=== PATIENT | female | born 1960 | race Caucasian/White ===

== ENCOUNTER 2016-06-30 14:31 | Inpatient (IN) | payer OTHER ==
[~2016-06-30] VITALS: Ht 167.6 cm; Wt 77.0 kg
[~2016-06-30 14:31] MED LIST: APAP/HYDROCODON1 T13 PO; BENAZEPRIL HYDR20 M1 PO; BG MC; FERG PO; GLU5 PO; HUMULIN R100 U/1 M1 SC; LAC PO; MAC100 PO; METFORMIN HCL1000 MG; METFORMIN HCL1000 MG PO; PAROXETINE20 M1 PO; PHARMASSURE VI500 MG PO
[2016-06-30] MEDS ORDERED: LISINOPRIL40 MG PO (15:05)
[2016-06-30 15:20] LABS: BASOPHIL % 0.3 % (0-2)
[2016-06-30 15:24] LABS: RED CELL DISTRIBUTION WIDTH 15.1 % (11.5-14.5)
[2016-06-30 15:30] LABS: PLATELET COUNT 555 x10^3mcL (130-400)
[2016-06-30 15:38] LABS: ALBUMIN 3.4 g/dL (3.4-5.0); BILIRUBIN TOTAL 0.4 mg/dL (0.20-1.00); CALCIUM 9.6 mg/dL (8.5-10.1); CARBON DIOXIDE 21.9 mmol/L (21-32); MAGNESIUM 3.4 mg/dL (1.8-2.4)
[2016-06-30 15:39] LABS: TOTAL PROTEIN, SERUM 8.3 g/dL (6.4-8.2)
[2016-06-30 15:42] LABS: CREATININE SERUM 14.2 mg/dL (0.6-1.0); POTASSIUM SERUM 6.2 mmol/L (3.5-5.1)
[2016-06-30 17:21] LABS: FREE T4 1.25 ng/dL (0.76-1.46); FREE THYROXINE INDEX 2.3 ug/dL (1.4-4.5); T4(THYROXINE) 6.9 ug/dL (4.7-13.3)
[2016-06-30 17:22] LABS: T3 TOTAL 0.7 ng/mL
[2016-06-30 17:39] VITALS: BP 169/90
[2016-06-30 20:10] LABS: CALCIUM 9.1 mg/dL (8.5-10.1)
[2016-06-30 20:14] LABS: POTASSIUM SERUM 6.3 mmol/L (3.5-5.1)
[2016-06-30 20:15] LABS: CREATININE SERUM 14.3 mg/dL (0.6-1.0)
[2016-06-30 21:01] VITALS: BP 177/92
[2016-06-30 21:17] VITALS: BP 169/90
[2016-06-30 22:44] VITALS: BP 154/78
[2016-07-01] VITALS (8 sets, daily range): BP systolic 143–166; BP diastolic 71–96
[2016-07-01 00:27] LABS: CALCIUM 9.5 mg/dL (8.5-10.1); CARBON DIOXIDE 19.6 mmol/L (21-32)
[2016-07-01 00:30] LABS: POTASSIUM SERUM 5.7 mmol/L (3.5-5.1)
[2016-07-01 00:31] LABS: CREATININE SERUM 13.1 mg/dL (0.6-1.0)
[2016-07-01 06:32] LABS: BASOPHIL % 0.3 % (0-2)
[2016-07-01 06:57] LABS: CARBON DIOXIDE 22.4 mmol/L (21-32); PHOSPHOROUS 6.8 mg/dL (2.5-4.9)
[2016-07-01 06:59] LABS: POTASSIUM SERUM 5.6 mmol/L (3.5-5.1)
[2016-07-01 07:00] LABS: CREATININE SERUM 13.8 mg/dL (0.6-1.0)
[2016-07-01 07:44] LABS: PLATELET COUNT 499 x10^3mcL (130-400)
[2016-07-01 09:52] LABS: microscopic required? YES; urine erythrocyte 2+ (NEGATIVE)
[2016-07-01 10:04] LABS: CREATININE UR 32.6 mg/dL
[2016-07-01 10:15] LABS: rbc morphology (normal/abnorm) ABNORMAL (NORMAL)
[2016-07-01 10:29] LABS: AMPHETAMINE QUAL UR NONE DETECTED (NEG <=1000)
[2016-07-01 16:43] LABS: CALCIUM 8.8 mg/dL (8.5-10.1); CARBON DIOXIDE 26.2 mmol/L (21-32)
[2016-07-01 16:45] LABS: POTASSIUM SERUM 5.6 mmol/L (3.5-5.1)
[2016-07-01 16:46] LABS: CREATININE SERUM 13.1 mg/dL (0.6-1.0)
[2016-07-02 01:28] LABS: BASOPHIL % 2.2 % (0-2); PLATELET COUNT 411 x10^3mcL (130-400); RED CELL DISTRIBUTION WIDTH 15.4 % (11.5-14.5)
[2016-07-02 05:55] VITALS: BP 111/69
[2016-07-02 06:50] LABS: BASOPHIL % 0.2 % (0-2); PLATELET COUNT 394 x10^3mcL (130-400)
[2016-07-02 07:06] LABS: CALCIUM 8.4 mg/dL (8.5-10.1); CARBON DIOXIDE 27.2 mmol/L (21-32); MAGNESIUM 2.9 mg/dL (1.8-2.4); PHOSPHOROUS 8.5 mg/dL (2.5-4.9); POTASSIUM SERUM 5.1 mmol/L (3.5-5.1); RED CELL DISTRIBUTION WIDTH 16.6 % (11.5-14.5)
[2016-07-02 07:57] LABS: CREATININE SERUM 12.7 mg/dL (0.6-1.0)
[2016-07-02 10:00] VITALS: BP 166/92
[2016-07-02 18:19] VITALS: BP 136/75
[2016-07-02 20:40] VITALS: BP 134/71
[2016-07-03 06:10] VITALS: BP 136/72
[2016-07-03 06:26] LABS: BASOPHIL % 0.5 % (0-2); PLATELET COUNT 376 x10^3mcL (130-400)
[2016-07-03 06:28] LABS: CALCIUM 8.7 mg/dL (8.5-10.1); CARBON DIOXIDE 29.8 mmol/L (21-32); MAGNESIUM 2.5 mg/dL (1.8-2.4); POTASSIUM SERUM 4.5 mmol/L (3.5-5.1); RED CELL DISTRIBUTION WIDTH 16.6 % (11.5-14.5)
[2016-07-03 07:03] LABS: CREATININE SERUM 12.7 mg/dL (0.6-1.0)
[2016-07-03 08:42] VITALS: Ht 167.6 cm; Wt 77.0 kg
[2016-07-03 09:56] VITALS: BP 161/78
[2016-07-03 17:15] LABS: BASOPHIL % 0.7 % (0-2)
[2016-07-03 17:20] LABS: PLATELET COUNT 414 x10^3mcL (130-400); RED CELL DISTRIBUTION WIDTH 16.4 % (11.5-14.5)
[2016-07-03] MEDS ORDERED: NOR10T PO (17:40)
[2016-07-03] MEDS ORDERED: COLACE100 MG PO (17:41)
[2016-07-03] MEDS ORDERED: ZOFRAN ODT8 MG PO (17:43)
[2016-07-03 17:49] VITALS: BP 161/78
[2016-07-03] MEDS ORDERED: TYL500 PO (18:01)
[2016-07-03 18:43] VITALS: BP 143/75
[2016-07-03 20:34] VITALS: BP 151/87
[2016-07-04 05:24] VITALS: BP 130/79
[2016-07-04 05:40] LABS: BASOPHIL % 0.6 % (0-2)
[2016-07-04 05:46] LABS: PLATELET COUNT 409 x10^3mcL (130-400)
[2016-07-04 05:54] LABS: CARBON DIOXIDE 27.1 mmol/L (21-32); MAGNESIUM 2.4 mg/dL (1.8-2.4); PHOSPHOROUS 7.8 mg/dL (2.5-4.9); POTASSIUM SERUM 3.6 mmol/L (3.5-5.1)
[2016-07-04 06:09] LABS: CREATININE SERUM 10.9 mg/dL (0.6-1.0)
[2016-07-04 08:51] VITALS: BP 150/77
[2016-07-04 13:41] VITALS: BP 123/71
[2016-07-04 17:06] VITALS: BP 143/75
[2016-07-04 21:20] VITALS: BP 155/81
[2016-07-05 05:51] VITALS: BP 127/71
[2016-07-05 06:22] LABS: BASOPHIL % 0.3 % (0-2)
[2016-07-05 06:48] LABS: PLATELET COUNT 429 x10^3mcL (130-400); RED CELL DISTRIBUTION WIDTH 16.3 % (11.5-14.5)
[2016-07-05 07:00] LABS: CALCIUM 9.1 mg/dL (8.5-10.1); CARBON DIOXIDE 27.6 mmol/L (21-32); MAGNESIUM 2.2 mg/dL (1.8-2.4); PHOSPHOROUS 6.8 mg/dL (2.5-4.9); POTASSIUM SERUM 3.5 mmol/L (3.5-5.1)
[2016-07-05 07:04] LABS: CREATININE SERUM 8.5 mg/dL (0.6-1.0)
[2016-07-05 09:00] VITALS: BP 150/85
[2016-07-05 09:40] VITALS: BP 140/77
[2016-07-05 15:00] VITALS: BP 127/68
[2016-07-05 15:14] VITALS: BP 127/68
[2016-07-05] MEDS ORDERED: ASPIRIN PO (15:22)
== END 2016-07-05 18:12 | disposition home health service (06) | DRG 951 ==
LOC: ED 14:31 → DU 16:37
PROVIDERS: Emergency Medicine; Family Medicine; Internal Medicine; Urology; ADMIT Family Medicine
PROC: 0TJB8ZZ Inspection of Bladder, Via Natural or Artificial Opening Endoscopic (ICD-10-PCS; principal; 2016-07-01 10:00)
PROC: 0T9030Z Drainage of Right Kidney with Drainage Device, Percutaneous Approach (ICD-10-PCS; 2016-07-03)
PROC: 0T9130Z Drainage of Left Kidney with Drainage Device, Percutaneous Approach (ICD-10-PCS; 2016-07-03)
DX: C53.9 Malignant neoplasm of cervix uteri, unspecified (principal); N17.0 Acute kidney failure with tubular necrosis; K85.90 Acute pancreatitis without necrosis or infection, unspecified; C67.0 Malignant neoplasm of trigone of bladder; E11.51 Type 2 diabetes mellitus with diabetic peripheral angiopathy without gangrene; E11.21 Type 2 diabetes mellitus with diabetic nephropathy; I16.0 Hypertensive urgency; D47.3 Essential (hemorrhagic) thrombocythemia; E86.0 Dehydration; N18.3 Chronic kidney disease, stage 3 (moderate); C54.1 Malignant neoplasm of endometrium; N13.1 Hydronephrosis with ureteral stricture, not elsewhere classified; N82.0 Vesicovaginal fistula; E11.65 Type 2 diabetes mellitus with hyperglycemia; E87.5 Hyperkalemia; E11.22 Type 2 diabetes mellitus with diabetic chronic kidney disease; I12.9 Hypertensive chronic kidney disease with stage 1 through stage 4 chronic kidney disease, or unspecified chronic kidney disease; E78.2 Mixed hyperlipidemia; D64.9 Anemia, unspecified; Z68.27 Body mass index [BMI] 27.0-27.9, adult; Z79.4 Long term (current) use of insulin; Z79.84 Long term (current) use of oral hypoglycemic drugs; Z87.891 Personal history of nicotine dependence
CPT/HCPCS: 80307; 83880; 84439; 97110-GP; 97116-GP; 97530-GP; C1729; C1758; C1769; C1884; C1894; J0360; J0610; J0696; J1815; J2001; J2250; J2704; J3010; J3490; J7030; J7040; J7050; J7620; P9016; Q0092; Q0163; Q9967

== ENCOUNTER 2016-07-27 07:38 | Emergency (ER) | payer OTHER ==
[~2016-07-27] VITALS: Ht 160 cm; Wt 73.6 kg
[~2016-07-27 07:38] MED LIST changes: +ASPIRIN PO; +COLACE100 MG PO; +LISINOPRIL40 MG PO; +NOR10T PO; +TYL500 PO; +ZOFRAN ODT8 MG PO
[2016-07-27 08:38] VITALS: BP 138/88
== END 2016-07-27 08:38 | disposition home or self-care (01) ==
LOC: ED 07:38
DX: T83.89XA Other specified complication of genitourinary prosthetic devices, implants and grafts, initial encounter (principal); C76.0 Malignant neoplasm of head, face and neck; I10 Essential (primary) hypertension; F32.9 Major depressive disorder, single episode, unspecified; E11.9 Type 2 diabetes mellitus without complications; N82.0 Vesicovaginal fistula; Y92.89 Other specified places as the place of occurrence of the external cause
CPT/HCPCS: 50398

== ENCOUNTER 2016-08-16 17:59 | Inpatient (IN) | payer OTHER ==
[~2016-08-16] VITALS: Ht 167.6 cm; Wt 74.8 kg
[2016-08-16 19:37] LABS: microscopic required? YES; urine erythrocyte 1+ (NEGATIVE)
[2016-08-16 19:42] LABS: BASOPHIL % 0.3 % (0-2)
[2016-08-16 19:48] LABS: PLATELET COUNT 570 x10^3mcL (130-400); RED CELL DISTRIBUTION WIDTH 15.9 % (11.5-14.5)
[2016-08-16 20:13] LABS: CALCIUM 9.3 mg/dL (8.5-10.1); CARBON DIOXIDE 26.6 mmol/L (21-32); CREATININE SERUM 2.5 mg/dL (0.6-1.0); POTASSIUM SERUM 4.1 mmol/L (3.5-5.1)
[2016-08-16 20:22] LABS: BILIRUBIN TOTAL 0.2 mg/dL (0.20-1.00); TOTAL PROTEIN, SERUM 7.9 g/dL (6.4-8.2)
[2016-08-16 20:24] LABS: ALBUMIN 2.7 g/dL (3.4-5.0)
[2016-08-16 20:53] LABS: T3 TOTAL 0.68 ng/mL
[2016-08-16 21:54] LABS: MAGNESIUM 1.8 mg/dL (1.8-2.4); PHOSPHOROUS 3.4 mg/dL (2.5-4.9)
[2016-08-16 21:56] LABS: CHOLESTEROL/HDL RATIO 4.2
[2016-08-16 22:01] LABS: FREE T4 1.44 ng/dL (0.76-1.46); FREE THYROXINE INDEX 2.7 ug/dL (1.4-4.5); T4(THYROXINE) 7.4 ug/dL (4.7-13.3)
[2016-08-16 22:39] VITALS: BP 140/72
[2016-08-17 02:47] LABS: AMPHETAMINE QUAL UR NONE DETECTED (NEG <=1000)
[2016-08-17 08:38] LABS: BASOPHIL % 0.4 % (0-2)
[2016-08-17 08:40] LABS: PLATELET COUNT 514 x10^3mcL (130-400)
[2016-08-17 09:10] LABS: CALCIUM 8.5 mg/dL (8.5-10.1); CARBON DIOXIDE 25.4 mmol/L (21-32); MAGNESIUM 1.8 mg/dL (1.8-2.4); PHOSPHOROUS 3.6 mg/dL (2.5-4.9); POTASSIUM SERUM 4.2 mmol/L (3.5-5.1)
[2016-08-17 09:34] VITALS: BP 105/57
[2016-08-17 09:35] VITALS: BP 151/54
[2016-08-17 09:37] VITALS: BP 105/57
[2016-08-17 10:11] LABS: rbc morphology (normal/abnorm) ABNORMAL (NORMAL)
[2016-08-17 13:46] VITALS: BP 106/70
[2016-08-17 15:20] LABS: RED BLOOD CELLS 2.4 M/mm3 (4.10-5.10)
[2016-08-17 16:11] LABS: rbc morphology (normal/abnorm) ABNORMAL (NORMAL)
[2016-08-17 16:36] LABS: IRON 15 ug/dL (50-170); TOTAL IRON BINDING CAPACITY 160 ug/dL (250-450)
[2016-08-17 17:44] VITALS: BP 112/61
[2016-08-17 21:48] VITALS: BP 111/68
[2016-08-18 06:53] VITALS: BP 102/69
[2016-08-18 09:30] VITALS: BP 101/59
[2016-08-18 10:58] LABS: BASOPHIL % 0.6 % (0-2)
[2016-08-18 11:08] LABS: CALCIUM 9.1 mg/dL (8.5-10.1); CREATININE SERUM 1.9 mg/dL (0.6-1.0); MAGNESIUM 1.5 mg/dL (1.8-2.4); PHOSPHOROUS 4.3 mg/dL (2.5-4.9); POTASSIUM SERUM 4.1 mmol/L (3.5-5.1)
[2016-08-18 11:09] LABS: PLATELET COUNT 574 x10^3mcL (130-400); RED CELL DISTRIBUTION WIDTH 16.5 % (11.5-14.5)
[2016-08-18 11:19] LABS: rbc morphology (normal/abnorm) ABNORMAL (NORMAL)
[2016-08-18 12:54] VITALS: BP 105/60
[2016-08-18 16:56] VITALS: BP 129/71
[2016-08-18 21:09] VITALS: BP 128/74
[2016-08-19 05:26] VITALS: BP 102/60
[2016-08-19 07:06] LABS: BASOPHIL % 0.3 % (0-2)
[2016-08-19 07:15] LABS: PLATELET COUNT 651 x10^3mcL (130-400); RED CELL DISTRIBUTION WIDTH 16.4 % (11.5-14.5)
[2016-08-19 07:26] LABS: CALCIUM 8.9 mg/dL (8.5-10.1); CARBON DIOXIDE 24.7 mmol/L (21-32)
[2016-08-19 07:32] LABS: MAGNESIUM 2.1 mg/dL (1.8-2.4)
[2016-08-19 09:15] VITALS: BP 116/73
[2016-08-19 17:02] VITALS: BP 119/72
[2016-08-19 21:28] VITALS: BP 129/81
[2016-08-20 05:55] LABS: BASOPHIL % 0.8 % (0-2)
[2016-08-20 06:17] LABS: CALCIUM 8.8 mg/dL (8.5-10.1); CARBON DIOXIDE 24.5 mmol/L (21-32); CREATININE SERUM 1.8 mg/dL (0.6-1.0); POTASSIUM SERUM 4.3 mmol/L (3.5-5.1)
[2016-08-20 06:26] VITALS: BP 125/68
[2016-08-20 06:37] LABS: RED CELL DISTRIBUTION WIDTH 16.2 % (11.5-14.5)
[2016-08-20 06:40] LABS: PLATELET COUNT 702 x10^3mcL (130-400)
[2016-08-20 06:41] LABS: rbc morphology (normal/abnorm) ABNORMAL (NORMAL)
[2016-08-20 07:42] VITALS: Ht 167.6 cm; Wt 74.8 kg
[2016-08-20 08:51] VITALS: BP 122/76
[2016-08-20 17:55] VITALS: BP 118/69
[2016-08-20 21:07] VITALS: BP 137/87
[2016-08-21 04:50] VITALS: BP 98/49
[2016-08-21 06:23] LABS: BASOPHIL % 0.4 % (0-2)
[2016-08-21 06:44] LABS: CALCIUM 8.9 mg/dL (8.5-10.1); CARBON DIOXIDE 27.1 mmol/L (21-32); CREATININE SERUM 1.7 mg/dL (0.6-1.0); MAGNESIUM 1.8 mg/dL (1.8-2.4); PHOSPHOROUS 3.9 mg/dL (2.5-4.9); POTASSIUM SERUM 4.6 mmol/L (3.5-5.1)
[2016-08-21 07:30] LABS: RED CELL DISTRIBUTION WIDTH 16.5 % (11.5-14.5)
[2016-08-21] MEDS ORDERED: FER300 PO (08:55)
[2016-08-21] MEDS ORDERED: GLU5 PO (08:56)
[2016-08-21] MEDS ORDERED: APAP/OXYCODONE1 TA4 PO (08:56)
[2016-08-21] MEDS ORDERED: COL100 PO (08:56)
[2016-08-21] MEDS ORDERED: VITC PO (08:57)
[2016-08-21] MEDS ORDERED: LEVAQUIN250 M1 PO (08:58)
[2016-08-21] MEDS ORDERED: LAC PO (09:23)
[2016-08-21 09:58] VITALS: BP 124/78
[2016-08-21 11:56] LABS: rbc morphology (normal/abnorm) ABNORMAL (NORMAL)
[2016-08-21 12:20] LABS: PLATELET COUNT 710 x10^3mcL (130-400)
[2016-08-21 13:03] VITALS: BP 124/78
[2016-08-21] MEDS ORDERED: TYL325 PO (13:32)
== END 2016-08-21 14:57 | disposition home or self-care (01) | DRG 466 ==
LOC: ED 17:59 → MU 20:38 → DU 20:38 → MU 08-19 10:28
PROVIDERS: Emergency Medicine; Family Medicine; Radiology Diagnostic Radiology; ADMIT Family Medicine
PROC: 0T25X0Z Change Drainage Device in Kidney, External Approach (ICD-10-PCS; principal; 2016-08-20 13:00)
DX: N99.521 Infection of incontinent external stoma of urinary tract (principal); N17.0 Acute kidney failure with tubular necrosis; E43 Unspecified severe protein-calorie malnutrition; E87.8 Other disorders of electrolyte and fluid balance, not elsewhere classified; D69.59 Other secondary thrombocytopenia; E87.1 Hypo-osmolality and hyponatremia; E11.65 Type 2 diabetes mellitus with hyperglycemia; N10 Acute pyelonephritis; L03.312 Cellulitis of back [any part except buttock and flank]; C54.1 Malignant neoplasm of endometrium; N39.0 Urinary tract infection, site not specified; B95.61 Methicillin susceptible Staphylococcus aureus infection as the cause of diseases classified elsewhere; N18.9 Chronic kidney disease, unspecified; E78.1 Pure hyperglyceridemia; D50.9 Iron deficiency anemia, unspecified; F17.210 Nicotine dependence, cigarettes, uncomplicated; Z68.26 Body mass index [BMI] 26.0-26.9, adult; Z79.82 Long term (current) use of aspirin; Z79.4 Long term (current) use of insulin; Z79.84 Long term (current) use of oral hypoglycemic drugs; Z91.19 Patient's noncompliance with other medical treatment and regimen; Y84.8 Other medical procedures as the cause of abnormal reaction of the patient, or of later complication, without mention of misadventure at the time of the procedure; Y73.2 Prosthetic and other implants, materials and accessory gastroenterology and urology devices associated with adverse incidents; Y92.009 Unspecified place in unspecified non-institutional (private) residence as the place of occurrence of the external cause
CPT/HCPCS: 83880; 84439; 94150; C1729; C1769; J0696; J1644; J1956; J2001; J2543; J3010; J3370; J3475; J3490; J7030; J7040; J7050; Q0092; Q9967

== ENCOUNTER 2016-10-13 12:43 | Inpatient (IN) | payer OTHER ==
[~2016-10-13] VITALS: Ht 157.5 cm; Wt 73.7 kg
[~2016-10-13 12:43] MED LIST changes: +APAP/OXYCODONE1 TA4 PO; +COL100 PO; +FER300 PO; +LEVAQUIN250 M1 PO; +TYL325 PO; +VITC PO
--- NOTE | 2016-10-13 13:27 | NUR ---
MSE COMPLETED BY DR KAHN
--- NOTE | 2016-10-13 13:27 | NUR ---
EMT AT BEDSIDE FOR MSE
--- NOTE | 2016-10-13 13:27 | NUR ---
PT TO ED FOR C/O POSSIBLE NEPHROSTOMY TUBE INFECTION, TUBE WAS PLACED 3 MONTHS AGO AND PT STARTED SEENING REDNESS AND SLIGHT SWELLING AROUND AREA 4 DAYS AGO, PT DENIES ANY N/V OR ABDOMINAL PAIN, PT AAOX4, RESP E/U, LAB AT BEDSIDE, PT IN NAD NOTED AT THIS TIME.
--- NOTE | 2016-10-13 13:29 | NUR ---
LAB AT BEDSIDE
--- NOTE | 2016-10-13 13:44 | NUR ---
PORTABLE RADIOLOGY AT BEDSIDE FOR CXR
[2016-10-13 13:48] LABS: BASOPHIL % 0.3 % (0-2); RED CELL DISTRIBUTION WIDTH 14.2 % (11.5-14.5)
[2016-10-13 13:49] LABS: microscopic required? YES; urine erythrocyte 3+ (NEGATIVE)
[2016-10-13 13:52] LABS: PLATELET COUNT 447 x10^3mcL (130-400)
[2016-10-13] MEDS ORDERED: ACETAMINOPHEN PO (13:57)
[2016-10-13 13:58] LABS: CALCIUM 9.3 mg/dL (8.5-10.1); CARBON DIOXIDE 25.4 mmol/L (21-32); CREATININE SERUM 1.6 mg/dL (0.6-1.0); POTASSIUM SERUM 4.7 mmol/L (3.5-5.1)
[2016-10-13] MEDS ORDERED: NATURAL IRON65 MG PO (13:58)
[2016-10-13 14:08] LABS: BILIRUBIN TOTAL 0.1 mg/dL (0.20-1.00); C REACTIVE PROTEIN 5.5 mg/dL (<=0.9)
[2016-10-13 14:09] LABS: ALBUMIN 3.3 g/dL (3.4-5.0); TOTAL PROTEIN, SERUM 8.6 g/dL (6.4-8.2)
[2016-10-13 14:12] LABS: T3 TOTAL 0.77 ng/mL
[2016-10-13 14:14] LABS: CK-MB < 0.5 ng/mL (0-3.6); CREATINE KINASE 18 U/L (26-192)
[2016-10-13 14:20] LABS: FREE T4 1.06 ng/dL (0.76-1.46); T4(THYROXINE) 7.8 ug/dL (4.7-13.3)
--- NOTE | 2016-10-13 14:31 | NUR ---
IV ABX INFUSING AT THIS TIME PER MD ORDER, PLEASE SEE EMAR, PT TOLERATING WELL, PT RESTING IN BED IN A POSITION OF COMFORT WITH SIGNIFICANT OTHER AT BEDSIDE, PT RESP EVEN AND UNLABORED, IN NO ACUTE DISTRESS, CALL LIGHT WITHIN REACH, WILL CONTINUE TO MONITOR, MRSA SWAB COLLECTED AND SENT TO LAB
--- NOTE | 2016-10-13 14:56 | NUR ---
REPORT GIVEN TO [facility] TELE FLOOR TO ASSUME CARE OF PT AFTER TRANSPORT
[2016-10-13 15:16] LABS: CHOLESTEROL/HDL RATIO 3.6; MAGNESIUM 1.7 mg/dL (1.8-2.4); PHOSPHOROUS 3.4 mg/dL (2.5-4.9)
--- NOTE | 2016-10-13 15:29 | NUR ---
URINE COLLECTED AND SENT TO LAB
[2016-10-13 15:44] LABS: AMPHETAMINE QUAL UR NONE DETECTED (NEG <=1000)
--- NOTE | 2016-10-13 16:02 | NUR ---
REC'D PT FROM ER VIA [facility]. PT IS AAOX4. TELE #12 NSR. LUNG SOUNDS CLEAR. NO SOB NOTED. PT HAS VIVIAN. NEPHROSTOMY TUBES. REDNESS/DRAINAGE NOTED TO LEFT NEPHROSTOMY TUBE SITE. PICTURE TAKEN. IV NOTED TO LAC. INTACT AND PATENT. ORIENTED PT TO CALL LIGHT. BED IN LOWEST POSITION. WILL ENDORSE TO PRIMARY RN.
[2016-10-13 16:17] VITALS: BP 152/89
--- NOTE | 2016-10-13 16:32 | NUR ---
SITTING UP IN BED, VIVIAN NEPHROSTOMY BAGS NOTED, REPORTS FLANK PAIN 2/10, CONTROLLED AT THIS TIME, REORIENTED TO ROOM AND CALL LIGHT, WILL CONTINUE TO PROVIDE CARE.
--- NOTE | 2016-10-13 17:38 | NUR ---
C/O REEDER 07/18, ADMIN PAIN MED ORDERED, CALL LIGHT WITHIN REACH.
[2016-10-13 17:40] VITALS: BP 139/78
--- NOTE | 2016-10-13 19:09 | NUR ---
RESTING IN BED, AT BEDSIDE, REPORTS REEDER 03/20, FLANK PAIN /10, TOLERABLE AT THIS TIME, ABLE TO TOLERATED DINNER WITHOUT GI DISTRESS, NO DRAINAGE NOTED, LEFT NEPHROSTOMY HAD ZERO OUTPUT, RIGHT NEPHROSTOMY HAD 400ML CLEAR YELLOW URINE, AWAITING FOR NEPHRO CONSULT, BG CHECKS REQUESTED, NO OTHER SIGNIFICANT CHANGES NOTED, CARE ENDORSED TO NIGHT NURSE.
--- NOTE | 2016-10-13 20:23 | NUR ---
AWAKE AND VERBALLY RESPONSIVE. ABLE TO MAKE EEDS KNOWN. FAMLY AT BEDSIDE VERY SUPPORTIVE OF PATIENT'S CURRENT PLAN OF CARE. LEFT NEPHROSTOMY TUBE SITE WITH REDNESS AND PURULENT DRAIANGE. DENIES ANY PAIN/DISCOMFORT AT THIS TIME. WILL CONTINUE TO MONITOR.
[2016-10-13 21:10] VITALS: BP 125/75
--- NOTE | 2016-10-14 00:10 | NUR ---
REMAINS NPO FOR POSSIBLE PROCEDURE IN AM. IVF D5W AT 114ML/HR ORDERED TOLERATING WELL. DENIES ANY PAIN/DISCOMFORT AT THIS TIME. TIGHT NEPHROSTOMY TUNE DRAINAING CLEAR YELLO URINE AOUTPUT. WILL CONTINUE TO MONITOR.
[2016-10-14 06:09] VITALS: BP 136/85
--- NOTE | 2016-10-14 06:24 | NUR ---
MAGNESIUM LEVEL1.7- MANESIUM OXIDE 400MG PO ORDERED AND WELL TOLERATED. PAIN LEVEL BEARABLE AT THIS TIME. ALL NEEDS ATTENDED.
--- NOTE | 2016-10-14 07:05 | NUR ---
RESTING IN BED, ABLE TO MAKE NEEDS KNOWN, C/O PAIN 2/10 AT LEFT FLANK, ZERO URINE OUTPUT REPORTED BY NIGHT RN, RIGHT FLANK PAIN 0/10, ABOUT 1200ML OR URINE OUTPUT REPORTED, VIVIAN NEPHROSTOMY SITES COVERED WITH DRY GAUZE, PT IS NOW NPO FOR POSSIBLE PROCEDURE, ON TELE #12 SR, DENIES HEART RELATED PAIN OR DISCOMFORT, IV AT LAC INFUSING D5W AT 114ML/HR, CALL LIGHT WITHIN REACH, WILL CONTINUE TO PROVIDE CARE.
[2016-10-14 07:56] LABS: BASOPHIL % 0.2 % (0-2); RED CELL DISTRIBUTION WIDTH 14.3 % (11.5-14.5)
[2016-10-14 08:02] LABS: PLATELET COUNT 409 x10^3mcL (130-400)
[2016-10-14 08:13] LABS: CALCIUM 9.2 mg/dL (8.5-10.1); CREATININE SERUM 1.3 mg/dL (0.6-1.0); POTASSIUM SERUM 4.9 mmol/L (3.5-5.1)
[2016-10-14 08:52] VITALS: BP 131/71
--- NOTE | 2016-10-14 09:08 | NUR ---
PT DECLINED DOSE OF METFORMIN, IRON, AND COLACE, STATES SHE "DOES NOT TAKE THESE MEDICATIONS IF SHE IS NOT EATING" RISKS AND BENEFITS EXPLAINED, VERBALIZED UNDERSTANDING, WILL MONITOR CLOSELY FOR S&S OF HYPERGLYCEMIA, CALL LIGHT WITHIN REACH, AT BEDSIDE.
--- NOTE | 2016-10-14 09:26 | NUR ---
ROUNDS WITH DR VELAZQUEZ AND MEDICAL TEAM, UPDATED PT ON CURRENT POC.
[2016-10-14 13:09] VITALS: BP 113/70
--- NOTE | 2016-10-14 16:25 | NUR ---
DRESSING CHANGE COMPLETED TO RIGHT AND LEFT NEPHROSTOMY SITES, SCANT AMOUNT OF DRAINAGE NOTED AT LEFT SITE, AREA WITH SMALL ENDURATION, NO ACTIVE DRAINAGE NOTED, TENDER TO TOUCH, PATIENT TOLERATED WITHOUT DISTRESS, CALL LIGHT WITHIN REACH.
--- NOTE | 2016-10-14 16:30 | NUR ---
C/O VAGINAL BLEEDING, PROVIDED WITH PERIPADS, HX OF UTERINE CA, PATIENT REPORTS NO TREATMENT HAS BEEN IMPLEMENTED YET.
[2016-10-14 16:45] VITALS: BP 100/63
--- NOTE | 2016-10-14 17:15 | NUR ---
BG 112MG/DL, PATIENT REFUSED DOSE OF METFORMING 1,000MG, REPORTS FEAR OF S&S OF HYPOGLYCEMIA, RISKS AND BENEFITS EXPLAINED, PATIENT VERBALIZED UNDERSTANDING, WILL MONITOR FOR SAFETY AND COMFORT, CALL LIGHT WITHIN REACH.
--- NOTE | 2016-10-14 18:49 | NUR ---
PATIENT RESTING IN BED, DENIES S&S OF HYPER/HYPOGLYCEMIA, LEFT FLANK PAIN 2/10, CONTROLLED AT THIS TIME, DR DUNN TO SEE PATIENT IN THE AM FOR POSSIBLE CHANGE OF VIVIAN NEPHROSTOMY TUBES, NO OTHER SIGNIFICANT CHANGES NOTED, CARE WILL BE ENDORSED TO NIGHT NURSE.
--- NOTE | 2016-10-14 19:10 | NUR ---
REC'D PT FROM DAY NURSE. PT AAOX4, SPEECH CLEAR, FOLLOWS COMMANDS. NEPALI SPEAKING. NO SIGNS OF DISTRESS NOTED. BREATHING EVEN/UNLABORED ON RA. MED SURG PT, NO TELE. DENIES CP, DIZZINESS, OR PALPITATIONS. NO EDEMAE NOTED. DENIES ABD PAIN, TENDERNESS, OR N/V. VIVIAN NEPHROSTOMY TUBES IN PLACE COVERED WITH GAUZE, CDI. R > OUTPUT THAN L. LIGHT YELLOW URINE DRAINING. REPORTS VAGINAL BLEEDING ON AND OFF. GEN WEAKNESS BUT AMBULATORY. C/O L FLANK PAIN WITH PALPATION, OTHERWISE NO DISCOMFORT AT THIS TIME. REPORTS SOME TENDERNESS TO LAC IV, WILL REPLACE. IVF HELD FOR NOW. CALL LIGHT WITHIN REACH, BED AT LOWEST POSITION. WILL CONTINUE TO MONITOR.
--- NOTE | 2016-10-14 19:12 | NUR ---
PT C/O PAIN AT IV SITE, UPON ASSESSMENT, SITE IS TENDER TO TOUCH, NIGHT RN WILL REMOVE AND RESTART NEW IV.
--- NOTE | 2016-10-14 20:08 | NUR ---
SPOKE TO DR. GARNICA REGARDING VIVIAN NEPH TUBE REPLACEMENT SX IN AM. INFORMED THAT ORDER TO OBTAIN CONSENT HAS NOT BEEN ENTERED.
--- NOTE | 2016-10-14 20:47 | NUR ---
SURGICAL CONSENT OBTAINED FOR BILATERAL NEPHROSTOMY TUBE REMOVAL AND REPLACEMENT. DR. GARNICA EXPLAINED PROCEDURE AND COMPLICATIONS IN OCCITAN TO PT.
[2016-10-14 21:13] VITALS: BP 119/73
--- NOTE | 2016-10-14 21:59 | NUR ---
PT REQUESTING DOSE OF FERROUS SULFATE. REFUSED DAILY DOSE @ 0900. DR. GARNICA INFORMED. GIVEN ORDERED ONE TIME DOSE. PT RESTING IN BED. NO COMPLAINTS AT THIS TIME. WILL CONTINUE TO MONITOR.
--- NOTE | 2016-10-15 02:55 | NUR ---
PT RESTING IN BED WITH EYES CLOSED. NO SIGNS OF DISTRESS NOTED. BREATHING EVEN/UNLABORED ON RA. R NEPH TUBE EMPTIED- 600 ML CLEAR LIGHT YELLOW URINE. CALL LIGHT WITHIN REACH, BED AT LOWEST POSITION. WILL CONTINUE TO MONITOR.
[2016-10-15 06:13] VITALS: BP 114/70
[2016-10-15 06:15] LABS: BASOPHIL % 0.5 % (0-2)
--- NOTE | 2016-10-15 06:20 | NUR ---
PT RESTING IN BED WITH EYES CLOSED. VIVIAN NEPH TUBES IN PLACE. REPORTS MILD TENDERNESS TO L FLANK. STILL HAS VAGINAL BLEEDING. TOTAL OUTPUT R NEPH TUBE 1700 ML CLEAR LIGHT YELLOW URINE. TOTAL OUTPUT L NEPH TUBE 30 ML CLOUDY LIGHT YELLOW URINE, ODOROUS. GAUZE DRESSINGS TO VIVIAN FLANK CDI. CHG BATH COMPLETED. VIVIAN NEPH TUBE REMOVAL AND REPLACEMENT TODAY. PT HAS BEEN NPO SINCE GA. CONSENT SIGNED. CHECKLIST COMPLETED. BS 140. CALL LIGHT WITHIN REACH, BED AT LOWEST POSITION. WILL ENDORSE TO DAY NURSE.
[2016-10-15 06:23] LABS: CALCIUM 8.9 mg/dL (8.5-10.1); CARBON DIOXIDE 25.9 mmol/L (21-32); CREATININE SERUM 1.4 mg/dL (0.6-1.0); MAGNESIUM 1.9 mg/dL (1.8-2.4); POTASSIUM SERUM 4.8 mmol/L (3.5-5.1)
--- NOTE | 2016-10-15 06:41 | NUR ---
PICTURE OF SITE OF L NEPH TUBE INSERTION TAKEN. GAUZE DRESSING CHANGED, SMALL AMOUNT OF PURULENT DRAINAGE.
[2016-10-15 06:57] LABS: PLATELET COUNT 413 x10^3mcL (130-400); RED CELL DISTRIBUTION WIDTH 14.7 % (11.5-14.5)
--- NOTE | 2016-10-15 08:00 | NUR ---
RECEIVED PT IN BED ALERT AND ORIENTED X4. VIVIAN NEPHROSTOMY TUBES IN PLACE WITH DRESSING CDI. REPORTS MILD PAIN TO L FLANK RATED 3/10 BUT TOLERABLE. YELLOW URINE NOTED FROM R NEPHROSTOMY TUBE BUT ONLY SCANT AMOUNT OF URINE NOTED FROM L NEPHROSTOMY TUBE. NPO FOR PROCEDURE TODAY. AMBULATORY. DENIES ANY GI UPSET. INSTRUCTED TO USE CALL LIGHT WHEN IN NEED OF ASSISTANCE.
[2016-10-15 09:15] VITALS: BP 122/79
[2016-10-15 13:22] VITALS: BP 132/84
--- NOTE | 2016-10-15 15:06 | NUR ---
DR OHARA SPOKE WITH RESIDENT FOR THIS PATIENT REGARDING ORDERED NEPHROSTOMY REPLACEMENT. PROCEDURE CANCELLED PER DR OHARA. NOTIFIED PATIENT'S NURSE BRYAN.
[2016-10-15 16:31] VITALS: Ht 157.5 cm; Wt 73.7 kg
[2016-10-15 17:08] VITALS: BP 138/86
--- NOTE | 2016-10-15 18:30 | NUR ---
PT IN BED, DENIES ANY PAIN OR DISCOMFORT AT THIS TIME. L NEPHROSTOMY TUBE EMPTIED, TOTAL OUTPUT OF 20ML THIS SHIFT. R NEPHROSTOMY TUBE WITH TOTAL OUTPUT OF 830ML.
--- NOTE | 2016-10-15 19:05 | NUR ---
AAOX4. JORDANIAN SPEAKING. MED SURG. LUNG SOUNDS CLEAR AND UNLABORED, ON RA. RADIAL AND PEDAL PULSES PALPABLE, NO EDEMA. BOWEL SOUNDS ACTIVE X 4 QUADRANTS. BILATERAL NEPHROSTOMY TUBES NOTED, BOTH DRESSINGS CDI. C/O PAIN 2/10 AT LEFT NEPROSTOMY SITE. IV TO LEFT FA PATENT AND INFUSING, NO REDNESS OR SWELLING. BED IN LOW POSITION, CALL LIGHT IN REACH, INSTRUCTED TO CALL FOR ASSISTANCE.
--- NOTE | 2016-10-15 20:19 | NUR ---
AA0X4. TELE #17 READING NSR, HR: 70. SIGNIFICANT OTHER AT BEDSIDE. LUNG SOUNDS CLEAR AND UNLABORED, ON RA. RADIAL AND PEDAL PULSES PALPBLE, NO EDEMA. BOWEL SOUNDS ACTIVE X 4 QUADRANTS. VOIDS WITHOUT DIFFICULTY. SKIN INTACT. C/O CHEST PAIN 2/10 DURING DEEP INHALATION, REFUSES MEDICATION AT THIS TIME. IV PATENT AND INFUSING, NO REDNESS OR SWELLING. BED IN LOW POSITION, CALL LIGHT IN REACH, INSTRUCTED TO CALL FOR ASSISTANCE.
[2016-10-15 21:35] VITALS: BP 138/80
--- NOTE | 2016-10-16 02:05 | NUR ---
RESTING IN BED WITH EYES CLOSED. AWAKENS EASILY TO VERBAL STIMULI. BREATHING EVEN AND UNLABORED. NO ACUTE DISTRESS NOTED. CALL LIGHT IN REACH. WILL CONTINUE TO MONITOR.
[2016-10-16 05:35] VITALS: BP 100/61
[2016-10-16 06:14] LABS: BASOPHIL % 0.5 % (0-2); RED CELL DISTRIBUTION WIDTH 14.3 % (11.5-14.5)
--- NOTE | 2016-10-16 06:18 | NUR ---
VSS. NO ACUTE CHANGES DURING SHIFT. BILATERAL NEPHROSTOMY DRESSINGS, CDI. DENIES PAIN AT THIS TIME. IV PATENT AND INFUSING. WILL ENDORSE CARE TO ONCOMING RN.
[2016-10-16 06:30] LABS: PLATELET COUNT 428 x10^3mcL (130-400)
[2016-10-16 06:40] LABS: CALCIUM 8.9 mg/dL (8.5-10.1); CARBON DIOXIDE 23.8 mmol/L (21-32); CREATININE SERUM 1.3 mg/dL (0.6-1.0); MAGNESIUM 1.7 mg/dL (1.8-2.4); PHOSPHOROUS 3.5 mg/dL (2.5-4.9); POTASSIUM SERUM 4.6 mmol/L (3.5-5.1)
[2016-10-16 06:42] LABS: IRON 19 ug/dL (50-170); TOTAL IRON BINDING CAPACITY 208 ug/dL (250-450)
[2016-10-16 07:03] LABS: RED BLOOD CELLS 2.97 M/mm3 (4.10-5.10)
--- NOTE | 2016-10-16 07:50 | NUR ---
RECEIVED PT IN BED ALERT AND ORIENTED X4. DENIES ANY PAIN OR DISCOMFORT AT THIS TIME. DENIES ANY GI UPSET. VIVIAN NEPHROSTOMY TUBES IN PLACE WITH DRESSING CDI. LIGHT YELLOW URINE OUTPUT NOTED FROM L NEPHROSTOMY TUBE. SCANT TO NONE OUTPUT NOTED FROM R NEPHROSTOMY TUBE. AMBULATORY. NO EDEMA NOTED. INSTRUCTED TO USE CALL LIGHT WHEN IN NEED OF ANY ASSISTANCE.
[2016-10-16 09:35] VITALS: BP 124/25
--- NOTE | 2016-10-16 12:19 | NUR ---
Inital Nutrition Assessment Dx: Infected L Nephrostomy Tube, UTI PMHx: DM, HTN, Depression, Cervical squamous cell CA, Endometrial CA PSHx: Cholecystectomy, bilateral nephrostomy tubes Labs: Na 149H, Cl 113H, BG 86, BUN 15, Cr 1.3H, Alb 3.3L, Glob 5.3H, TBIli 0.1 L, GFR 35, ALP 130H, Magnesium 1.7L, TG 185 H, A1C 7.1 H, H/H 8.4/26 L, Juan Diego <10L. Meds: Colace, D50%, Ferrous Sulfate, Glucophage, Humulin, Lactinex, NS IV, Theragran, Zestril, Zofran, Diet: NPO (for bilateral nephrostomy tube placement) Diet order: Renal, CCHO 60g Prior PO Intake: (10/14) D: 100% (10/15) D: 100% Ht: 62in Wt: 162lb BMI: 29.7 kg/m2 (Overweight) IBW: 110lb %IBW: 147% Adj. BW: 123lb UBW: 164 lb Age: 56 y/o F Food Allergies: None Skin: Dressing to Nephrostomy tube skin opening. Luis 20 Edema: None GI: Last BM 10/16 Pt admitted with cellulitis at Left nephrostomy tube site, is improving and no obstructions are noted on either nephrostomy tube, per Dr. Rush no replacement of tubes is necessary and pt has been cleared for discharge per progress note (10/15). Due to history of cervical and endometrial CA pt has urinary obstruction and had nephrostomy tubes placed, a large soft tissue mass has been noted within the urinary bladder, pt is not under treatment per progress notes (10/15). Pt seen by internet systems administrator with pt's at beside, pt was alert and participated in interview. Pt stated she is feeling better and had no questions for the graphic design intern. Problems with: N: No V: No D: No C: No Problems with: Chewing: No Swallowing: No Current Appetite: Good Recent wt change: 2 lb (within 2 months) %wt change: 1.2% wt loss Vitamin/Supplement use: Iron and vitamin supplements Diet at home: Regular Physical activity: When feels well walks about 40 minutes in the evening Education: help desk internship educated pt on DM diet and discussed handouts, pt states she was aware of recommendations but does not follow them. Pt was also agreeable to diet information for hyperlipidemia. Estimated Nutritional Needs Based on: Adj. Body Weight 123lb, 56kg Energy: 1680-1960kcal/d (30-35 kcal/kg for CA) Protein: 56-67g/d (1-1.2g/kg for CA and Nephrostomy) Fluid: 1680 ml/d (1ml/kg) or per doctor Nutrition Diagnosis: Altered nutrition related lab values related to noncompliance with DM diet as evidenced by A1C 7.1 and diet history per pt. Intervention: 1. Recommend CCHO 60g diet Monitor/ Evaluate: Goal: PO intake to meet at least 75% of estimated needs Monitor: PO intake, Labs (BG, Cr, BUN), GI function F/U in 7 days as Low risk 10/23
--- NOTE | 2016-10-16 12:22 | NUR ---
1. Recommend CCHO 60g diet
[2016-10-16] MEDS ORDERED: BACTRIM DS1 TAB PO (14:38)
--- NOTE | 2016-10-16 15:34 | NUR ---
IV DC'D. DISCHARGE INSTRUCTIONS AND PRESCRIPTIONS GIVEN AND EXPLAINED TO PT AND PTS . PT DISCHARGED HOME, BROUGHT OFF FLOOR VIA [facility] ACCOMPANIED BY AND OFFICE CLERK,
== END 2016-10-16 15:44 | disposition home or self-care (01) | DRG 466 ==
LOC: ED 12:43 → MU 14:18 → DU 14:18 → MU 10-14 16:17
PROVIDERS: Family Medicine; Specialist; ADMIT Student in an Organized Health Care Education/Training Program
DX: N99.521 Infection of incontinent external stoma of urinary tract (principal); N17.0 Acute kidney failure with tubular necrosis; N10 Acute pyelonephritis; D68.69 Other thrombophilia; E11.65 Type 2 diabetes mellitus with hyperglycemia; E11.59 Type 2 diabetes mellitus with other circulatory complications; B95.62 Methicillin resistant Staphylococcus aureus infection as the cause of diseases classified elsewhere; B96.89 Other specified bacterial agents as the cause of diseases classified elsewhere; E87.1 Hypo-osmolality and hyponatremia; E44.1 Mild protein-calorie malnutrition; C54.1 Malignant neoplasm of endometrium; N32.0 Bladder-neck obstruction; E83.42 Hypomagnesemia; E78.5 Hyperlipidemia, unspecified; D64.9 Anemia, unspecified; Z68.29 Body mass index [BMI] 29.0-29.9, adult; Z79.82 Long term (current) use of aspirin; Z79.84 Long term (current) use of oral hypoglycemic drugs; Y83.3 Surgical operation with formation of external stoma as the cause of abnormal reaction of the patient, or of later complication, without mention of misadventure at the time of the procedure; Y73.2 Prosthetic and other implants, materials and accessory gastroenterology and urology devices associated with adverse incidents; Y92.009 Unspecified place in unspecified non-institutional (private) residence as the place of occurrence of the external cause
CPT/HCPCS: 36600; 83880; 84439; J0696; J1450; J7030; J7042; Q0092

== ENCOUNTER 2016-10-31 08:46 | Emergency (ER) | payer OTHER ==
[~2016-10-31 08:46] MED LIST changes: +ACETAMINOPHEN PO; +BACTRIM DS1 TAB PO; +NATURAL IRON65 MG PO
[2016-10-31 10:30] VITALS: BP 134/71
== END 2016-10-31 10:30 | disposition home or self-care (01) ==
LOC: ED 08:46
DX: T83.89XA Other specified complication of genitourinary prosthetic devices, implants and grafts, initial encounter (principal); I10 Essential (primary) hypertension; E11.9 Type 2 diabetes mellitus without complications; Z87.42 Personal history of other diseases of the female genital tract; Z79.899 Other long term (current) drug therapy; Y92.89 Other specified places as the place of occurrence of the external cause

== ENCOUNTER 2016-11-20 12:08 | Inpatient (IN) | payer OTHER ==
[~2016-11-20] VITALS: Ht 162.6 cm; Wt 73.6 kg
[2016-11-20 13:40] LABS: BASOPHIL % 0.4 % (0-2)
[2016-11-20 13:43] LABS: PLATELET COUNT 564 x10^3mcL (130-400); RED CELL DISTRIBUTION WIDTH 14.9 % (11.5-14.5)
[2016-11-20 13:44] LABS: ALBUMIN 3.4 g/dL (3.4-5.0); BILIRUBIN TOTAL 0.1 mg/dL (0.20-1.00); CALCIUM 9.5 mg/dL (8.5-10.1); CARBON DIOXIDE 25.8 mmol/L (21-32); CREATININE SERUM 1.4 mg/dL (0.6-1.0); PHOSPHOROUS 3.5 mg/dL (2.5-4.9); POTASSIUM SERUM 4.3 mmol/L (3.5-5.1); TOTAL PROTEIN, SERUM 8.6 g/dL (6.4-8.2); URIC ACID 7.1 mg/dL (2.6-6.0)
[2016-11-20] MEDS ORDERED: BENAZEPRIL HYDR40 M1 PO (13:58)
[2016-11-20] MEDS ORDERED: EPZICOM1 TAB (13:59)
[2016-11-20] MEDS ORDERED: PAXIL CR25 MG PO (13:59)
[2016-11-20 14:09] LABS: microscopic required? YES
[2016-11-20 14:11] LABS: urine erythrocyte 3+ (NEGATIVE)
[2016-11-20 14:21] LABS: AMYLASE 65 U/L (25-115); LIPASE 152 IU/L (73-393)
[2016-11-20 14:21] LABS: AMPHETAMINE QUAL UR NONE DETECTED (NEG <=1000)
[2016-11-20 15:11] VITALS: BP 129/79
[2016-11-20 15:17] LABS: T3 TOTAL 0.82 ng/mL
[2016-11-20 15:20] LABS: FREE T4 1.16 ng/dL (0.76-1.46); FREE THYROXINE INDEX 2.7 ug/dL (1.4-4.5); T4(THYROXINE) 7.1 ug/dL (4.7-13.3)
[2016-11-20 15:21] VITALS: BP 129/79
[2016-11-20 21:26] VITALS: BP 127/81
[2016-11-21] VITALS (9 sets, daily range): BP systolic 107–149; BP diastolic 57–94
[2016-11-22 06:27] VITALS: BP 109/62
[2016-11-22 09:18] VITALS: BP 114/75
[2016-11-22] MEDS ORDERED: LAC PO ×2 (09:43→10:21)
[2016-11-22] MEDS ORDERED: METFORMIN HCL1000 MG PO (10:21)
[2016-11-22] MEDS ORDERED: MAC100 PO (10:21)
[2016-11-22] MEDS ORDERED: FER300 PO (10:21)
[2016-11-22] MEDS ORDERED: PAX20 PO (10:21)
[2016-11-22 13:40] VITALS: BP 110/80
[2016-11-22 13:43] VITALS: BP 110/80
== END 2016-11-22 15:54 | disposition home or self-care (01) | DRG 466 ==
LOC: ED 12:08 → DU 13:18
PROVIDERS: Emergency Medicine; Radiology Diagnostic Radiology; ADMIT Family Medicine
PROC: 0T25X0Z Change Drainage Device in Kidney, External Approach (ICD-10-PCS; 2016-11-21)
PROC: 0T25X0Z Change Drainage Device in Kidney, External Approach (ICD-10-PCS; principal; 2016-11-21 13:30)
DX: N99.522 Malfunction of incontinent external stoma of urinary tract (principal); N17.0 Acute kidney failure with tubular necrosis; E44.1 Mild protein-calorie malnutrition; E11.65 Type 2 diabetes mellitus with hyperglycemia; E11.59 Type 2 diabetes mellitus with other circulatory complications; D68.69 Other thrombophilia; N39.0 Urinary tract infection, site not specified; C53.9 Malignant neoplasm of cervix uteri, unspecified; T83.092A Other mechanical complication of nephrostomy catheter, initial encounter; I10 Essential (primary) hypertension; F32.9 Major depressive disorder, single episode, unspecified; Y73.2 Prosthetic and other implants, materials and accessory gastroenterology and urology devices associated with adverse incidents; Y92.009 Unspecified place in unspecified non-institutional (private) residence as the place of occurrence of the external cause
CPT/HCPCS: 50430; 50432; 83880; 84439; C1729; C1884; C1887; J1956; J2001; J2250; J2310; J2405; J3010; J3490; J7030; J7040; J7050; Q0092

== ENCOUNTER 2017-02-25 12:30 | Inpatient (IN) | payer OTHER ==
[~2017-02-25] VITALS: Ht 162.6 cm; Wt 69.1 kg
[~2017-02-25 12:30] MED LIST changes: +BENAZEPRIL HYDR40 M1 PO; +EPZICOM1 TAB; -NATURAL IRON65 MG PO; +PAX20 PO; +PAXIL CR25 MG PO
[2017-02-25 21:00] LABS: BASOPHIL % 0.4 % (0-2)
[2017-02-25 21:07] LABS: CALCIUM 9.2 mg/dL (8.5-10.1); CARBON DIOXIDE 27.4 mmol/L (21-32); CREATININE SERUM 1.9 mg/dL (0.6-1.0); POTASSIUM SERUM 4.4 mmol/L (3.5-5.1)
[2017-02-25 21:12] LABS: TOTAL PROTEIN, SERUM 8.1 g/dL (6.4-8.2)
[2017-02-25 21:13] LABS: ALBUMIN 2.8 g/dL (3.4-5.0)
[2017-02-25 21:22] LABS: BILIRUBIN TOTAL 0.08 mg/dL (0.20-1.00)
[2017-02-25 21:23] LABS: PLATELET COUNT 703 x10^3mcL (130-400); RED CELL DISTRIBUTION WIDTH 15.8 % (11.5-14.5)
[2017-02-25 21:55] LABS: UA SPECIFIC GRAVITY >=1.030 (1.005-1.035); microscopic required? YES; urine erythrocyte TRACE (NEGATIVE)
[2017-02-25] MEDS ORDERED: ZOF4 PO (23:01)
[2017-02-25] MEDS ORDERED: FERROUS SULFAT140 MG PO (23:02)
[2017-02-25] MEDS ORDERED: LEVAQUIN750 MG PO (23:02)
[2017-02-25] MEDS ORDERED: APAP/HYDROCODON1 T11 PO (23:03)
[2017-02-25] MEDS ORDERED: BACTRIM DS1 TAB PO (23:03)
[2017-02-25 23:57] VITALS: BP 148/78
[2017-02-26] VITALS (7 sets, daily range): BP systolic 103–148; BP diastolic 68–85; Ht 162.6 cm; Wt 69.1 kg
[2017-02-26 01:50] LABS: FREE T4 1.34 ng/dL (0.76-1.46); FREE THYROXINE INDEX 3.4 ug/dL (1.4-4.5); T4(THYROXINE) 8.6 ug/dL (4.7-13.3)
[2017-02-26 02:09] LABS: T3 TOTAL 0.75 ng/mL
[2017-02-26 03:21] LABS: PHOSPHOROUS 3.6 mg/dL (2.5-4.9)
[2017-02-26 03:31] LABS: MAGNESIUM 2.2 mg/dL (1.8-2.4)
[2017-02-26 06:45] LABS: BASOPHIL % 0.3 % (0-2)
[2017-02-26 06:56] LABS: CALCIUM 8.8 mg/dL (8.5-10.1); CREATININE SERUM 1.5 mg/dL (0.6-1.0); POTASSIUM SERUM 4.9 mmol/L (3.5-5.1)
[2017-02-26 07:58] LABS: RED CELL DISTRIBUTION WIDTH 15.6 % (11.5-14.5)
[2017-02-26 07:59] LABS: PLATELET COUNT 654 x10^3mcL (130-400)
[2017-02-27 05:41] VITALS: BP 114/80
[2017-02-27 06:35] LABS: BASOPHIL % 0.3 % (0-2)
[2017-02-27 06:39] LABS: CALCIUM 9.1 mg/dL (8.5-10.1); CARBON DIOXIDE 24.5 mmol/L (21-32); CREATININE SERUM 1.4 mg/dL (0.6-1.0); POTASSIUM SERUM 4.8 mmol/L (3.5-5.1)
[2017-02-27 07:10] LABS: PLATELET COUNT 704 x10^3mcL (130-400); RED CELL DISTRIBUTION WIDTH 14.8 % (11.5-14.5)
[2017-02-27 09:40] VITALS: BP 146/90
[2017-02-27 16:28] VITALS: BP 124/79
[2017-02-27 21:17] VITALS: BP 131/85
[2017-02-28 05:59] LABS: BASOPHIL % 0.3 % (0-2)
[2017-02-28 06:00] VITALS: BP 106/61
[2017-02-28 06:19] LABS: CALCIUM 8.9 mg/dL (8.5-10.1); CARBON DIOXIDE 24.1 mmol/L (21-32); CREATININE SERUM 1.2 mg/dL (0.6-1.0); POTASSIUM SERUM 4.3 mmol/L (3.5-5.1)
[2017-02-28 06:26] LABS: RED CELL DISTRIBUTION WIDTH 16.2 % (11.5-14.5)
[2017-02-28 06:27] LABS: PLATELET COUNT 699 x10^3mcL (130-400)
[2017-02-28] MEDS ORDERED: BACTRIM1 TAB PO (10:45)
[2017-02-28] MEDS ORDERED: BD LACTINEX1.4 MG PO (10:48)
[2017-02-28] MEDS ORDERED: COLACE100 MG PO (10:49)
[2017-02-28] MEDS ORDERED: NORCO1 TA2 PO (10:49)
[2017-02-28 11:03] VITALS: BP 137/78
[2017-02-28] MEDS ORDERED: NATURAL IRON65 MG PO (11:11)
[2017-02-28 11:35] VITALS: BP 137/78
[2017-02-28] MEDS ORDERED: ATIVAN0.5 M1 PO (12:10)
[2017-02-28] MEDS ORDERED: CLINDAMYCIN HC300 MG PO (12:35)
== END 2017-02-28 17:35 | disposition home or self-care (01) | DRG 466 ==
LOC: ED 12:30 → DU 22:56 → MU 22:56 → EDBEDREQ 22:57 → DU 23:52 → MU 02-26 06:27
PROVIDERS: Emergency Medicine; Radiology Diagnostic Radiology; ADMIT Family Medicine
PROC: 0T25X0Z Change Drainage Device in Kidney, External Approach (ICD-10-PCS; principal; 2017-02-27 13:30)
DX: N99.522 Malfunction of incontinent external stoma of urinary tract (principal); N17.0 Acute kidney failure with tubular necrosis; E43 Unspecified severe protein-calorie malnutrition; D68.69 Other thrombophilia; E11.22 Type 2 diabetes mellitus with diabetic chronic kidney disease; E87.1 Hypo-osmolality and hyponatremia; E11.65 Type 2 diabetes mellitus with hyperglycemia; N13.39 Other hydronephrosis; C53.9 Malignant neoplasm of cervix uteri, unspecified; N39.0 Urinary tract infection, site not specified; R80.9 Proteinuria, unspecified; I12.9 Hypertensive chronic kidney disease with stage 1 through stage 4 chronic kidney disease, or unspecified chronic kidney disease; N18.9 Chronic kidney disease, unspecified; D64.9 Anemia, unspecified; F32.9 Major depressive disorder, single episode, unspecified; Z79.84 Long term (current) use of oral hypoglycemic drugs; Z68.26 Body mass index [BMI] 26.0-26.9, adult
CPT/HCPCS: 83880; 84439; 94150; C1729; C1769; C1884; C1887; J0696; J2001; J2060; J2250; J3010; J7030; J7042; Q0092; Q9967

== ENCOUNTER 2017-05-17 18:48 | Emergency (ER) | payer OTHER ==
[~2017-05-17] VITALS: Ht 165.1 cm; Wt 68.0 kg
[~2017-05-17 18:48] MED LIST changes: +APAP/HYDROCODON1 T11 PO; +ATIVAN0.5 M1 PO; +BACTRIM1 TAB PO; +BD LACTINEX1.4 MG PO; +CLINDAMYCIN HC300 MG PO; +FERROUS SULFAT140 MG PO; +LEVAQUIN750 MG PO; +NATURAL IRON65 MG PO; +NORCO1 TA2 PO; +ZOF4 PO
[2017-05-17 19:07] VITALS: Ht 165.1 cm; Wt 68.0 kg
[2017-05-17 19:58] LABS: CREATININE SERUM 1.4 mg/dL (0.6-1.0); POTASSIUM SERUM 4.8 mmol/L (3.5-5.1)
[2017-05-17 20:02] LABS: BILIRUBIN TOTAL 0.2 mg/dL (0.20-1.00)
[2017-05-17 20:04] LABS: ALBUMIN 3.2 g/dL (3.4-5.0); TOTAL PROTEIN, SERUM 8.5 g/dL (6.4-8.2)
[2017-05-17 20:10] LABS: BASOPHIL % 0.4 % (0-2)
[2017-05-17 20:12] LABS: PLATELET COUNT 620 x10^3mcL (130-400); RED CELL DISTRIBUTION WIDTH 15.9 % (11.5-14.5)
[2017-05-17 21:35] VITALS: BP 138/84
== END 2017-05-17 21:36 | disposition home or self-care (01) ==
LOC: ED 18:48
PROVIDERS: Emergency Medicine
DX: K21.9 Gastro-esophageal reflux disease without esophagitis (principal); I10 Essential (primary) hypertension; E11.9 Type 2 diabetes mellitus without complications
CPT/HCPCS: 83880; J2060; J7030

== ENCOUNTER 2017-06-13 15:17 | Emergency (ER) | payer OTHER ==
[~2017-06-13] VITALS: Ht 165.1 cm; Wt 68.9 kg
[2017-06-13 15:26] VITALS: Ht 165.1 cm; Wt 68.9 kg
[2017-06-13 16:16] LABS: BASOPHIL % 0.3 % (0-2)
[2017-06-13 16:22] LABS: CALCIUM 9.9 mg/dL (8.5-10.1); CARBON DIOXIDE 25.8 mmol/L (21-32); CREATININE SERUM 1.7 mg/dL (0.6-1.0); POTASSIUM SERUM 5.5 mmol/L (3.5-5.1)
[2017-06-13 16:23] LABS: PLATELET COUNT 526 x10^3mcL (130-400); RED CELL DISTRIBUTION WIDTH 17.4 % (11.5-14.5)
[2017-06-13 16:27] LABS: ALBUMIN 3.5 g/dL (3.4-5.0); BILIRUBIN TOTAL 0.19 mg/dL (0.20-1.00)
[2017-06-13 16:42] LABS: UA SPECIFIC GRAVITY <=1.005 (1.005-1.035); microscopic required? YES; urine erythrocyte 2+ (NEGATIVE)
[2017-06-13 18:27] LABS: MAGNESIUM 2.5 mg/dL (1.8-2.4); PHOSPHOROUS 3.6 mg/dL (2.5-4.9)
[2017-06-13 18:28] LABS: T3 TOTAL 0.86 ng/mL
[2017-06-13 18:29] LABS: AMPHETAMINE QUAL UR NONE DETECTED (NEG <=1000)
[2017-06-13 18:30] LABS: FREE T4 1.12 ng/dL (0.76-1.46); FREE THYROXINE INDEX 3.2 ug/dL (1.4-4.5); T4(THYROXINE) 9.2 ug/dL (4.7-13.3)
[2017-06-13 21:12] VITALS: BP 134/81
== END 2017-06-13 23:02 | disposition left against medical advice (07) ==
LOC: ED 15:17 → EDBEDREQSVC 17:39 → ED 23:02
PROVIDERS: Emergency Medicine; Family Medicine
DX: N39.0 Urinary tract infection, site not specified (principal); E87.5 Hyperkalemia; N28.9 Disorder of kidney and ureter, unspecified; I10 Essential (primary) hypertension; E11.9 Type 2 diabetes mellitus without complications; Z85.41 Personal history of malignant neoplasm of cervix uteri; Z96.0 Presence of urogenital implants
CPT/HCPCS: 83880; 84439; J1956; Q0092

== ENCOUNTER 2017-06-19 10:43 | Emergency (ER) | payer OTHER ==
[~2017-06-19] VITALS: Ht 167.6 cm; Wt 66.2 kg
[2017-06-19 11:00] VITALS: BP 141/85; Ht 167.6 cm; Wt 66.2 kg
== END 2017-06-19 14:12 | disposition home or self-care (01) ==
LOC: ED 10:43
DX: T83.89XA Other specified complication of genitourinary prosthetic devices, implants and grafts, initial encounter (principal); I10 Essential (primary) hypertension; E11.9 Type 2 diabetes mellitus without complications; Y92.89 Other specified places as the place of occurrence of the external cause

== ENCOUNTER 2017-06-20 10:42 | Emergency (ER) | payer OTHER ==
[~2017-06-20] VITALS: Ht 167.6 cm; Wt 66.2 kg
[2017-06-20 10:50] VITALS: Ht 167.6 cm; Wt 66.2 kg
[2017-06-20 14:01] VITALS: BP 119/67
== END 2017-06-20 14:01 | disposition home or self-care (01) ==
LOC: ED 10:42
DX: T83.092A Other mechanical complication of nephrostomy catheter, initial encounter (principal); C76.0 Malignant neoplasm of head, face and neck; I10 Essential (primary) hypertension; E11.9 Type 2 diabetes mellitus without complications; F32.9 Major depressive disorder, single episode, unspecified; N13.30 Unspecified hydronephrosis; Y92.89 Other specified places as the place of occurrence of the external cause
CPT/HCPCS: 50430; C1729; C1769; J2001; J2250; J3010; Q9967

== ENCOUNTER 2017-06-21 10:30 | Emergency (ER) | payer OTHER ==
[~2017-06-21] VITALS: Ht 162.6 cm; Wt 68.0 kg
[2017-06-21 10:39] VITALS: Ht 162.6 cm; Wt 68.0 kg
[2017-06-21 11:41] VITALS: BP 101/62
== END 2017-06-21 11:41 | disposition home or self-care (01) ==
LOC: ED 10:30
DX: T83.89XA Other specified complication of genitourinary prosthetic devices, implants and grafts, initial encounter (principal); I10 Essential (primary) hypertension; E11.9 Type 2 diabetes mellitus without complications; Z93.6 Other artificial openings of urinary tract status; Y92.89 Other specified places as the place of occurrence of the external cause

== ENCOUNTER 2017-10-01 09:27 | Emergency (ER) | payer OTHER ==
[~2017-10-01] VITALS: Ht 172.7 cm; Wt 68.0 kg
[2017-10-01 09:33] VITALS: Ht 172.7 cm; Wt 68.0 kg
[2017-10-01 15:15] VITALS: BP 107/71
== END 2017-10-01 15:15 | disposition home or self-care (01) ==
LOC: ED 09:27
DX: Z46.6 Encounter for fitting and adjustment of urinary device (principal); I10 Essential (primary) hypertension; E11.9 Type 2 diabetes mellitus without complications; F32.9 Major depressive disorder, single episode, unspecified; Z85.41 Personal history of malignant neoplasm of cervix uteri
CPT/HCPCS: 50389; 50430; 50435; J2001; J2250; J3010; J7030; Q9967

== ENCOUNTER 2017-12-04 16:51 | Emergency (ER) | payer OTHER ==
[~2017-12-04] VITALS: Ht 170.2 cm; Wt 63.5 kg
[2017-12-04 17:06] VITALS: Ht 170.2 cm; Wt 63.5 kg
[2017-12-04 17:54] LABS: BASOPHIL % 0.4 % (0-2)
[2017-12-04 17:59] LABS: RED CELL DISTRIBUTION WIDTH 15.4 % (11.5-14.5)
[2017-12-04 18:02] LABS: CALCIUM 9.3 mg/dL (8.5-10.1); CARBON DIOXIDE 24.8 mmol/L (21-32); CREATININE SERUM 1.2 mg/dL (0.6-1.0); POTASSIUM SERUM 4.6 mmol/L (3.5-5.1)
[2017-12-04 18:05] LABS: PLATELET COUNT 793 x10^3mcL (130-400)
[2017-12-04 18:06] LABS: BILIRUBIN TOTAL 0.17 mg/dL (0.20-1.00)
[2017-12-04 18:08] LABS: TOTAL PROTEIN, SERUM 8.3 g/dL (6.4-8.2)
[2017-12-04 19:18] LABS: PHOSPHOROUS 2.7 mg/dL (2.5-4.9)
[2017-12-04 19:19] LABS: CHOLESTEROL/HDL RATIO 3.4
[2017-12-04 19:41] LABS: FREE T4 1.23 ng/dL (0.76-1.46); FREE THYROXINE INDEX 2.7 ug/dL (1.4-4.5); T4(THYROXINE) 7.2 ug/dL (4.7-13.3)
[2017-12-04 19:58] VITALS: BP 182/99
[2017-12-05 01:04] LABS: T3 TOTAL 0.67 ng/mL
== END 2017-12-04 19:58 | disposition home or self-care (01) ==
LOC: ED 16:51 → MU 18:46 → ED 18:46
PROVIDERS: Emergency Medicine; Internal Medicine
DX: N99.522 Malfunction of incontinent external stoma of urinary tract (principal); I10 Essential (primary) hypertension; E11.9 Type 2 diabetes mellitus without complications; G89.29 Other chronic pain; R10.30 Lower abdominal pain, unspecified; Z92.3 Personal history of irradiation; Z85.41 Personal history of malignant neoplasm of cervix uteri
CPT/HCPCS: 84439

== ENCOUNTER 2018-01-14 08:26 | Emergency (ER) | payer OTHER ==
[~2018-01-14] VITALS: Ht 160 cm; Wt 59.9 kg
[2018-01-14 08:36] VITALS: BP 134/99; Ht 160 cm; Wt 59.9 kg
== END 2018-01-14 09:46 | disposition home or self-care (01) ==
LOC: ED 08:26
DX: Z46.6 Encounter for fitting and adjustment of urinary device (principal)

== ENCOUNTER 2018-01-16 08:50 | Inpatient (IN) | payer OTHER ==
[~2018-01-16] VITALS: Ht 162.6 cm; Wt 62.3 kg
[2018-01-16 08:58] VITALS: Ht 162.6 cm; Wt 62.3 kg
[2018-01-16 11:29] LABS: BASOPHIL % 0.1 % (0-2); RED CELL DISTRIBUTION WIDTH 16.8 % (11.5-14.5)
[2018-01-16 11:32] LABS: PLATELET COUNT 1114 x10^3mcL (130-400)
[2018-01-16 11:36] LABS: CALCIUM 9.2 mg/dL (8.5-10.1); CARBON DIOXIDE 25.3 mmol/L (21-32); CREATININE SERUM 1.4 mg/dL (0.6-1.0); POTASSIUM SERUM 5.1 mmol/L (3.5-5.1)
[2018-01-16 11:40] LABS: BILIRUBIN TOTAL 0.1 mg/dL (0.20-1.00)
[2018-01-16 11:45] LABS: ALBUMIN 2.5 g/dL (3.4-5.0); TOTAL PROTEIN, SERUM 8.3 g/dL (6.4-8.2)
[2018-01-16] MEDS ORDERED: GOOD SENSE OMEP20 MG (13:41)
[2018-01-16 14:41] VITALS: BP 152/83
[2018-01-16 16:18] LABS: CHOLESTEROL/HDL RATIO 2.8
[2018-01-16 16:29] LABS: T3 TOTAL 0.75 ng/mL
[2018-01-16 16:32] LABS: FREE T4 1.32 ng/dL (0.76-1.46); FREE THYROXINE INDEX 2.5 ug/dL (1.4-4.5); T4(THYROXINE) 6.7 ug/dL (4.7-13.3)
[2018-01-16 17:18] VITALS: BP 158/94
[2018-01-16 18:51] LABS: IRON 10 ug/dL (50-170); TOTAL IRON BINDING CAPACITY 202 ug/dL (250-450)
[2018-01-16 18:53] LABS: RED BLOOD CELLS 3.07 M/mm3 (4.10-5.10)
[2018-01-16 20:39] VITALS: BP 167/92
[2018-01-16 21:10] VITALS: BP 153/92
[2018-01-16 23:00] VITALS: BP 148/82
[2018-01-16 23:20] VITALS: BP 145/88
[2018-01-17 02:00] VITALS: BP 147/85
[2018-01-17 06:05] VITALS: BP 132/84
[2018-01-17 08:29] LABS: CALCIUM 8.4 mg/dL (8.5-10.1); CARBON DIOXIDE 24.9 mmol/L (21-32); CREATININE SERUM 1.2 mg/dL (0.6-1.0); MAGNESIUM 1.6 mg/dL (1.8-2.4); PHOSPHOROUS 3.2 mg/dL (2.5-4.9); POTASSIUM SERUM 4.3 mmol/L (3.5-5.1)
[2018-01-17 08:40] LABS: RED CELL DISTRIBUTION WIDTH 16.7 % (11.5-14.5)
[2018-01-17 08:43] LABS: PLATELET COUNT 905 x10^3mcL (130-400)
[2018-01-17 09:44] LABS: ERYTHROCYTE SED RATE 112 mm/hr (0-30)
[2018-01-17 10:44] LABS: BAND NEUTROPHIL 0 % (0-10); BASOPHIL 0 % (0-2); MONOCYTE 7 % (0-7); PLATELET MORPHOLOGY PLATELETS INCREASED; SEGMENTED NEUTROPHILS 87 % (37-75)
[2018-01-17 10:46] LABS: rbc morphology (normal/abnorm) ABNORMAL (NORMAL); target cell (codocyte) 1+
[2018-01-17 17:32] VITALS: BP 140/94
[2018-01-17 18:38] LABS: microscopic required? YES; urine erythrocyte TRACE (NEGATIVE)
[2018-01-17 20:21] VITALS: BP 140/80
[2018-01-18 05:09] VITALS: BP 130/83
[2018-01-18 07:20] LABS: CALCIUM 8.7 mg/dL (8.5-10.1); CARBON DIOXIDE 24.2 mmol/L (21-32); CREATININE SERUM 1.2 mg/dL (0.6-1.0); MAGNESIUM 1.6 mg/dL (1.8-2.4); PHOSPHOROUS 3.1 mg/dL (2.5-4.9); POTASSIUM SERUM 3.9 mmol/L (3.5-5.1)
[2018-01-18 07:27] LABS: BASOPHIL % 0 % (0-2); RED CELL DISTRIBUTION WIDTH 16.7 % (11.5-14.5)
[2018-01-18 07:29] LABS: PLATELET COUNT 842 x10^3mcL (130-400)
[2018-01-18 09:22] VITALS: BP 148/88
[2018-01-18] MEDS ORDERED: LEV500 PO (12:17)
[2018-01-18 13:13] VITALS: BP 148/88
[2018-01-18 17:17] VITALS: BP 158/91
[2018-01-18 21:25] VITALS: BP 114/76
[2018-01-19 05:32] VITALS: BP 142/79
[2018-01-19 09:15] VITALS: BP 149/89
[2018-01-19 10:54] LABS: BASOPHIL % 0.1 % (0-2); RED CELL DISTRIBUTION WIDTH 16.7 % (11.5-14.5)
[2018-01-19 10:56] LABS: PLATELET COUNT 925 x10^3mcL (130-400)
[2018-01-19 11:17] LABS: BILIRUBIN DIRECT 0.05 mg/dL (0.0-0.2); BILIRUBIN TOTAL 0.16 mg/dL (0.20-1.00); CALCIUM 8.6 mg/dL (8.5-10.1); CARBON DIOXIDE 23.2 mmol/L (21-32); CREATININE SERUM 1.2 mg/dL (0.6-1.0); POTASSIUM SERUM 4.4 mmol/L (3.5-5.1); TOTAL PROTEIN, SERUM 7.2 g/dL (6.4-8.2)
[2018-01-19 12:52] VITALS: BP 175/111
[2018-01-19 16:26] VITALS: BP 152/93
[2018-01-19 20:34] VITALS: BP 136/79
[2018-01-20] VITALS (7 sets, daily range): BP systolic 97–158; BP diastolic 52–95
[2018-01-20 07:34] LABS: BASOPHIL % 0.2 % (0-2)
[2018-01-20 07:44] LABS: RED CELL DISTRIBUTION WIDTH 17.4 % (11.5-14.5)
[2018-01-20 07:46] LABS: PLATELET COUNT 918 x10^3mcL (130-400)
[2018-01-20 08:59] LABS: CALCIUM 8.8 mg/dL (8.5-10.1); CARBON DIOXIDE 23.2 mmol/L (21-32); CREATININE SERUM 1.3 mg/dL (0.6-1.0); POTASSIUM SERUM 4.5 mmol/L (3.5-5.1)
[2018-01-21] VITALS (8 sets, daily range): BP systolic 134–166; BP diastolic 82–99
[2018-01-21 06:11] LABS: BASOPHIL % 0.3 % (0-2)
[2018-01-21 06:21] LABS: CALCIUM 8.2 mg/dL (8.5-10.1); CARBON DIOXIDE 25.4 mmol/L (21-32); CREATININE SERUM 1.2 mg/dL (0.6-1.0); POTASSIUM SERUM 3.9 mmol/L (3.5-5.1)
[2018-01-21 07:08] LABS: RED CELL DISTRIBUTION WIDTH 17.1 % (11.5-14.5)
[2018-01-21 07:12] LABS: PLATELET COUNT 879 x10^3mcL (130-400)
[2018-01-22 05:43] VITALS: BP 145/83
[2018-01-22 06:05] LABS: BASOPHIL % 0.7 % (0-2)
[2018-01-22 06:49] LABS: CALCIUM 8.4 mg/dL (8.5-10.1); CARBON DIOXIDE 24.9 mmol/L (21-32); CHLORIDE SERUM 107 mmol/L (98-107); GFR1 > 60 mL/min; GLUCOSE SERUM 108 mg/dL (74-106); POTASSIUM SERUM 3.5 mmol/L (3.5-5.1); SODIUM SERUM 141 mmol/L (136-145)
[2018-01-22 07:37] LABS: RED CELL DISTRIBUTION WIDTH 16.9 % (11.5-14.5)
[2018-01-22 07:38] LABS: PLATELET COUNT 845 x10^3mcL (130-400)
[2018-01-22 09:20] VITALS: BP 155/86
[2018-01-22 12:15] VITALS: BP 153/88
[2018-01-22 14:37] VITALS: BP 153/88
== END 2018-01-22 16:14 | disposition home or self-care (01) | DRG 720 ==
LOC: ED 08:50 → MU 13:21 → DU 13:21 → MU 13:21 → DU 01-18 10:29
PROVIDERS: Emergency Medicine; Family Medicine; Radiology Diagnostic Radiology
PROC: 30233N1 Transfusion of Nonautologous Red Blood Cells into Peripheral Vein, Percutaneous Approach (ICD-10-PCS; principal; 2018-01-16 10:00)
PROC: 0F913ZX Drainage of Right Lobe Liver, Percutaneous Approach, Diagnostic (ICD-10-PCS; 2018-01-21)
DX: A41.9 Sepsis, unspecified organism (principal); N17.0 Acute kidney failure with tubular necrosis; E43 Unspecified severe protein-calorie malnutrition; D64.9 Anemia, unspecified; E11.65 Type 2 diabetes mellitus with hyperglycemia; K76.9 Liver disease, unspecified; D47.3 Essential (hemorrhagic) thrombocythemia; I10 Essential (primary) hypertension; F32.9 Major depressive disorder, single episode, unspecified; N39.0 Urinary tract infection, site not specified; Z79.84 Long term (current) use of oral hypoglycemic drugs; Z85.42 Personal history of malignant neoplasm of other parts of uterus; Z85.51 Personal history of malignant neoplasm of bladder; Z93.6 Other artificial openings of urinary tract status
CPT/HCPCS: 49180; 50430; 82962; 83880; 84439; 97110-GP; 97116-GP; 97530-GP; C1729; C1884; J1644; J1956; J2001; J2060; J2250; J2270; J2310; J2405; J3010; J3475; J3490; J7030; J7050; P9016; Q0092; Q0163; Q9967